=== PATIENT | female | born 1975 | race Caucasian/White ===

== ENCOUNTER 2017-05-30 09:23 | Inpatient (IN) | payer MEDICAID ==
[~2017-05-30] VITALS: Ht 152.4 cm; Wt 90.3 kg
[2017-05-30 09:44] VITALS: BP 120/59; PULSE 84; Ht 152.4 cm; Wt 90.3 kg
[2017-05-30] MEDS ORDERED: PRENAT PO (09:45)
--- NOTE | 2017-05-30 11:13 | RADRPT ---
PROCEDURE: US OB biophysical profile. CLINICAL INDICATION: decreased movements, post dates TECHNIQUE: Multiple sonographic images of the pelvis were obtained. The images were reviewed on a PACS workstation. COMPARISON: No prior studies are available for comparison. FINDINGS: There is a single viable intrauterine gestation. Cardiac activity is present with 148 beats per min neto. There is a vertex presentation. The placenta is anterior. There is no evidence of placental abruption. There is a decreased amount of amniotic fluid with an JEFF = 6.2 cm. Biophysical profile: movement 2/2 tone 2/2. breathing 2/2 JEFF 2/2 Total 06/27 RPTAT: AA . IMPRESSION: Normal biophysical profile. Mild oligohydramnios. . .Jorge Luis Ross MD, Date Time Electronically viewed and signed by .Jorge Luis Ross MD, MD on 05/30/2017 11:12 .S/
[2017-05-30] MEDS ORDERED: LACTATED RINGER'S 1,000 ML IV SCH (12:39)
[2017-05-30] MEDS ORDERED: METHYLERGONOVINE 0.2 MG INJ IM PRN ×2 (13:00→21:30)
[2017-05-30] MEDS ORDERED: CARBOPROST 250 MCG INJ IM PRN ×2 (13:00→21:30)
[2017-05-30] MEDS ORDERED: LACTATED RINGER'S 1,000 ML IV PRN (13:00)
[2017-05-30] MEDS ORDERED: OXYTOCIN 30 UNITS/LR 500 ML IV PRN ×2 (13:00→21:30)
[2017-05-30] MEDS ORDERED: LIDOCAINE 1% (MPF) 30 ML INJ INJ PRN (13:00)
[2017-05-30] MEDS ORDERED: OXYTOCIN 30 UNITS/LR 500 ML IV SCH ×2 (13:00→15:00)
[2017-05-30] MEDS ORDERED: BUTORPHANOL 2 MG INJ IV PRN ×2 (13:00)
[2017-05-30] MEDS ORDERED: MISOPROSTOL 200 MCG TAB PR PRN ×2 (13:00→21:30)
[2017-05-30 14:15] LABS: ADD SCAN DIFF NO
[2017-05-30 14:18] LABS: BASOPHIL # 0.1 10^3/ul (0.0-0.1); BASOPHILS % 0.6 % (0.0-2.0); EOSINOPHILS # 0.1 10^3/ul (0.0-0.5); EOSINOPHILS % 1.2 % (0.0-7.0); HEMATOCRIT 34.5 % (37.0-47.0); HEMOGLOBIN 12.1 g/dl (12.0-16.0); LYMPHOCYTES # 1.7 10^3/ul (0.8-2.9); LYMPHOCYTES % 16.5 % (15.0-51.0); MEAN CORPUSCULAR HEMOGLOBIN 30.2 pg (29.0-33.0); MEAN CORPUSCULAR HGB CONC 35.1 g/dl (32.0-37.0); MEAN PLATELET VOLUME 12.5 fl (7.4-10.4); MONOCYTE # 0.6 10^3/ul (0.3-0.9); MONOCYTES % 5.3 % (0.0-11.0); NEUTROPHIL # 7.9 10^3/ul (1.6-7.5); NEUTROPHILS % 75.7 % (39.0-77.0); PLATELET COUNT 234 10^3/UL (140-415); RED BLOOD COUNT 4.01 10^6/ul (4.20-5.40); RED CELL DISTRIBUTION WIDTH 14.9 % (11.5-14.5); WHITE BLOOD COUNT 10.5 10^3/ul (4.8-10.8)
[2017-05-30 14:32] LABS: INR 0.9; PROTIME 12.1 Sec (12.2-14.2); PT RATIO 0.9
[2017-05-30 14:33] LABS: PARTIAL THROMBOPLASTIN TIME 28.2 Sec (25.0-35.0)
[2017-05-30] MEDS ORDERED: AMPICILLIN 2 GM/NS (PMX) 100 ML IVPB ONE (16:00)
--- NOTE | 2017-05-30 16:25 | HP ---
Date/Time of Note Date/Time of Note DATE: 05/30/17 TIME: 16:21 OB - History Hx of Present Free Text/Dictation Patient admitted at 40 weeks gestation for decreased amniotic fluid Last Menstrual Period: Sep 01, 2016 Estimated Due Date: May 30, 2017 : 8 Para: 2 Spontaneous : 1 Therapeutic : 3 Care: Good Care Ultrasounds: Normal mid trimester US Obstetrical Complications: None Medical Complications: None Past Family/Social History * Past Medical, Surgical, Family and Obstetric Histories reviewed from chart. Blood Type: O+ Rubella: immune RPR/VDRL: Negative GBS Status: Positive HBsAG: Negative OB Admission Exam Vital Signs Vital Signs Vital Signs Date Time Temp Pulse Resp B/P Pulse Ox O2 Delivery O2 Flow Rate FiO2 05/30/17 09:44 98.0 84 120/59 Physical Exam HEENT: WNL Heart: Rhythm Normal Lungs: Clear, Equal Abdomen: WNL Extremities: Normal Reflexes: Normal Cervical Dilatation: 2cm Effacement: 50% Station: -3 Membranes: Intact Heart Rate: 140's Accelerations: Accelerations Present Decelerations: No Decelerations Varibility: Moderate Contractions on Admission: 6-10 Minutes Apart Date/Time Contractions Began: ? Frequency of Contractions: ? Duration: ? Last 72 hours Lab Results CBC & BMP 05/30/17 13:50 OB Assessment/Plan Other Assessment: Term gestation Decreased amniotic fluid by ultrasound today Induction Method: per Pitocin Protocol SONIA MENG MD May 30, 2017 16:25
[2017-05-30] MEDS ORDERED: MINERAL OIL LIGHT 10 ML VIAL TOP STA (19:16)
[2017-05-30 19:48] LABS: ALBUMIN 3.7 g/dl (3.3-4.9); ALBUMIN/GLOBULIN RATIO 1.32; BILIRUBIN,INDIRECT 0.5 mg/dl (0-1.1); BILIRUBIN,TOTAL 0.5 mg/dl (0.2-1.3); CALCIUM 8.8 mg/dl (8.4-10.2); CREATININE 0.87 mg/dl (0.44-1.00); POTASSIUM 3.6 mmol/L (3.5-5.1); TOTAL PROTEIN 6.5 g/dl (6.1-8.1); URIC ACID 6.6 mg/dl (3.1-7.9)
--- NOTE | 2017-05-30 19:52 | LDN ---
Date/Time of Note Date/Time of Note DATE: 05/30/17 TIME: 19:49 Delivery Summary of a viable over intact perineum Weeks of Gestation 40+ Placenta Delivered: Spontaneously, Intact & Complete Meconium: Light Episiotomy: No Laceration repair: small vaginal laceration was repaired with 2 0 Chromic Anesthesia type: Local Estimated blood loss: 300 Sponge & Needle done & correct: Yes All needle counts correct: Yes Any foreign bodies felt in the: No Problems: Delivery Information Sex Sex: male Apgars 1 Minute: 9 5 Minute: 9 Suctioning Nose & mouth suctioned at biran: Yes Delee suction performed: No Umbilical Cord Umbilical cord with: 3 Vessels Cord presentations: no nuchal cord Cord Blood was obtained: Yes Mother & Baby Disposition Disposition Mom & Baby to Maternity; Good: Yes (mother and baby were recovered in good condition ) Mom transferred to: Other (matternity) Baby to NICU: Yes SONIA MENG MD May 30, 2017 19:52
[2017-05-30] MEDS ORDERED: AMPICILLIN 1 GM/NS (PMX) 50 ML IVPB SCH (20:00)
[2017-05-30] MEDS ORDERED: ACETAMINOPHEN/CODEINE #3 TAB PO ONE (20:00)
[2017-05-30] MEDS ORDERED: LACTATED RINGER'S 1,000 ML IV* SCH (21:07)
[2017-05-30 21:15] VITALS: BP 144/77; PULSE 80; RESP 18
[2017-05-30] MEDS ORDERED: LANOLIN 7 GM TUBE TOP PRN (21:30)
[2017-05-30] MEDS ORDERED: DIBUCAINE 1% 30 GM OINT PR PRN (21:30)
[2017-05-30] MEDS ORDERED: ZOLPIDEM 5 MG TAB PO PRN (21:30)
[2017-05-30] MEDS ORDERED: ACETAMINOPHEN/CODEINE #3 TAB PO PRN ×2 (21:30)
[2017-05-30] MEDS ORDERED: BENZOCAINE 20% 56 ML SPRAY TOP PRN (21:30)
[2017-05-30] MEDS ORDERED: WITCH HAZEL/GLYCERIN PAD PR PRN (21:30)
[2017-05-30] MEDS: IBUPROFEN 600 MG TAB PO SCH (23:13)
[2017-05-31 00:30] VITALS: BP 132/68; PULSE 65; RESP 18
[2017-05-31 03:46] VITALS: BP 125/66; PULSE 63; RESP 18
[2017-05-31] MEDS: IBUPROFEN 600 MG TAB PO SCH ×3 (05:29→17:45)
[2017-05-31 07:40] VITALS: BP 109/56; PULSE 63; RESP 17
[2017-05-31] MEDS: SENNA/DOCUSATE NA (8.6MG/50MG) TAB PO SCH ×2 (09:21→21:24)
[2017-05-31] MEDS: MAGNESIUM HYDROXIDE 30ML CUP PO SCH ×2 (09:21→21:24)
[2017-05-31 11:02] LABS: ADD SCAN DIFF NO
[2017-05-31 11:07] LABS: BASOPHILS % 0.3 % (0.0-2.0); EOSINOPHILS # 0.1 10^3/ul (0.0-0.5); HEMATOCRIT 32.9 % (37.0-47.0); HEMOGLOBIN 11.2 g/dl (12.0-16.0); LYMPHOCYTES # 2.1 10^3/ul (0.8-2.9); LYMPHOCYTES % 16.2 % (15.0-51.0); MEAN CORPUSCULAR HEMOGLOBIN 29.6 pg (29.0-33.0); MEAN PLATELET VOLUME 12.5 fl (7.4-10.4); MONOCYTE # 0.8 10^3/ul (0.3-0.9); MONOCYTES % 5.7 % (0.0-11.0); NEUTROPHIL # 10.1 10^3/ul (1.6-7.5); PLATELET COUNT 215 10^3/UL (140-415); RED BLOOD COUNT 3.78 10^6/ul (4.20-5.40); RED CELL DISTRIBUTION WIDTH 14.8 % (11.5-14.5); WHITE BLOOD COUNT 13.2 10^3/ul (4.8-10.8)
[2017-05-31 12:00] VITALS: BP 121/68; PULSE 77; RESP 17
--- NOTE | 2017-05-31 14:18 | DS ---
Date/Time of Note Date/Time of Note home next day DATE: 05/31/17 TIME: 14:17 Obstetrical Discharge Record Final Diagnosis Final Diagnosis: Term delivered Other Final Diagnosis S/P vaginal delivery Vaginal Delivery Obstetrical Delivery: Spontaneous, Laceration, Repaired Complications Augmentation: Yes Condition on Discharge Physical Assessment Last Vitals: see nurses notes Voiding: Yes Bowel Movement: Yes Breast: Soft, non-tender, Filling Fundus: Firm Abdomen and Incision: soft BS + Episiotomy: NA Calf Tenderness: No Patient Condition: Good SONIA MENG MD May 31, 2017 14:18
[2017-05-31] MEDS ORDERED: IBUP-1542 PO (14:25)
--- NOTE | 2017-05-31 14:29 | PD.PPDC ---
DIRECTOR OF PSYCHIATRY Discharge Instruction Provider Information Physician Information 41 y/o female had vaginal delivery Diagnosis Final Diagnosis: S/P vaginal delivery Condition Patient Condition: Good Diet Diet: Resume Regular Diet Activity/Restrictions Activity: Normal Activity May Shower Restrictions: Nothing in the Vagina Return to Work or School: Jul 17, 2017 Follow-up Follow-up with Physician: 4, Week/Weeks (in clinic ) Return to clinic for OB Instructions: Breast Tenderness Depression SONIA MENG MD May 31, 2017 14:28
[2017-05-31 16:00] VITALS: BP 136/72; PULSE 75; RESP 18
[2017-05-31 19:45] VITALS: BP 91/51; PULSE 80; RESP 18
[2017-06-01 03:52] VITALS: BP 111/63; PULSE 76; RESP 18
[2017-06-01] MEDS: IBUPROFEN 600 MG TAB PO SCH ×3 (06:00→11:44)
[2017-06-01 08:25] VITALS: BP 110/74; PULSE 86; RESP 18
[2017-06-01] MEDS ORDERED: MEASLES,MUMPS,RUBELLA VACCINE INJ SC* ONE (09:00)
[2017-06-01] MEDS ORDERED: VARICELLA VACCINE LIVE/PF 1,350 UNIT/0.5 ML ML SC* ONE (09:00)
[2017-06-01] MEDS ORDERED: DIPHTH/TET/ACEL PERTUSS (ADULT) 0.5 ML VIAL IM* ONE (09:00)
[2017-06-01] MEDS: SENNA/DOCUSATE NA (8.6MG/50MG) TAB PO SCH (09:18)
[2017-06-01] MEDS: MAGNESIUM HYDROXIDE 30ML CUP PO SCH (09:18)
== END 2017-06-01 15:25 | disposition home or self-care (01) | DRG 775 ==
LOC: OBT 09:23 → L-D 09:24 → OBT 12:40 → L-D 13:01 → PP1 21:16
PROVIDERS: ADMIT Obstetrics & Gynecology; ATTEND Obstetrics & Gynecology
PROC: 10E0XZZ Delivery of Products of Conception, External Approach (ICD-10-PCS; principal; 2017-05-30)
PROC: 0UQGXZZ Repair Vagina, External Approach (ICD-10-PCS; 2017-05-30)
DX: O48.0 Post-term pregnancy (principal); O71.4 Obstetric high vaginal laceration alone; Z3A.40 40 weeks gestation of pregnancy; Z37.0 Single live birth
CPT/HCPCS: 76818; 80053; 84560; 85025; 85610; 85730; 86592; 86900; 86901; 90715; 90716; G0463; J0290; J2590; J7120